=== PATIENT | male | born 1980 | race Two or more races ===

== ENCOUNTER 2018-10-30 14:12 | Emergency (ER) | payer OTHER ==
[2018-10-30] MEDS ORDERED: KETOROLAC TROMETHAMINE 60 MG/2 ML SDV IM ONE (14:51)
--- NOTE | 2018-10-30 16:05 | RADIOLOGY REPORT (SQ) ---
EXAM DESCRIPTION: HUMERUS RIGHT COMPLETED DATE/TIME: 10/30/2018 3:48 pm REASON FOR STUDY: pain from elbow to biceps area COMPARISON: None. NUMBER OF VIEWS: Two views. TECHNIQUE: Two radiographic images were acquired of the right humerus to include elbow and shoulder in at least one projection. LIMITATIONS: None. FINDINGS: MINERALIZATION: Normal. BONES: No acute fracture or dislocation. No worrisome bone lesions. SOFT TISSUES: No obvious swelling or foreign body. OTHER: No other significant finding. IMPRESSION: No fracture or dislocation of the right humerus. TECHNICAL DOCUMENTATION: JOB ID: [id number] [employer]- All Rights Reserved Reading location - IP/workstation name: [email or web address]
--- NOTE | 2018-10-30 16:05 | RADIOLOGY REPORT (SQ) ---
EXAM DESCRIPTION: ELBOW RIGHT OVER 2 VIEWS COMPLETED DATE/TIME: 10/30/2018 3:48 pm REASON FOR STUDY: felt pop in antecubital space, now pain COMPARISON: None. NUMBER OF VIEWS: Four views. TECHNIQUE: AP, lateral, and both oblique radiographic images acquired of the right elbow. LIMITATIONS: None. FINDINGS: MINERALIZATION: Normal. BONES: No acute fracture or dislocation. No worrisome bone lesions. JOINT: No effusion. SOFT TISSUES: No soft tissue swelling. No foreign body. OTHER: No other significant finding. IMPRESSION: No fracture or dislocation of the right elbow. Joint spaces are preserved. No elbow sonia int effusion. MRI may be used to further evaluate for ligamentous or tendinous injury of the right e lbow, for example biceps tendon rupture. TECHNICAL DOCUMENTATION: JOB ID: [id number] [employer]- All Rights Reserved Reading location - IP/workstation name: [email or web address]
--- NOTE | 2018-10-30 16:19 | ER Document Report ---
HPI - HPI Time Seen by Provider: 10/30/18 14:44 Pain Level: 4 Notes: Patient is an otherwise healthy 38-year-old male who presents with chief complaint of right arm pain. He states that on 10/22/18 while he was at work he felt a pop near the antecubital space of his right arm. He now continues to have pain shooting from his forearm up into his bicep. He has occasional numbness in the fingertips. Patient reports today he tried to flip a burger and had severe pain. Patient reports over the last 10 days he has tried taking ibuprofen and has also tried ice in the area with no relief. Patient denies any past medical or surgical history, denies the use of any daily medications and has no drug allergies. - EENT EENT: DENIES: Sore Throat - CARDIOVASCULAR Cardiovascular: DENIES: Chest pain - GASTROINTESTINAL Gastrointestinal: DENIES: Abdominal Pain - REPRODUCTIVE Reproductive: DENIES: : - MUSCULOSKELETAL Musculoskeletal: REPORTS: Extremity pain - right arm Past Medical History - General Information source: Patient - Social History Smoking Status: Current Every Day Smoker Chew tobacco use (# tins/day): No Frequency of alcohol use: None Drug Abuse: None Family History: Reviewed & Not Pertinent Patient has suicidal ideation: No Patient has homicidal ideation: No - Medical History Medical History: Negative Renal/ Medical History: Denies: Hx Peritoneal Dialysis Surgical Hx: Negative - Immunizations Immunizations up to date: Yes Vertical Provider Document - CONSTITUTIONAL Notes: PHYSICAL EXAMINATION: GENERAL: Well-appearing, well-nourished and in no acute distress. HEAD: Atraumatic, normocephalic. EYES: Pupils equal round extraocular movements intact, conjunctiva are normal. ENT: Nares patent NECK: Normal range of motion LUNGS: No respiratory distress Musculoskeletal: Normal range of motion, no obvious deformity noted to right upper extremity, cap refill less than 3 seconds, normal motor sensation distal to injury. NEUROLOGICAL: Normal speech, normal gait. PSYCH: Normal mood, normal affect. SKIN: Warm, Dry, normal turgor, no rashes or lesions noted. - INFECTION CONTROL TRAVEL OUTSIDE OF THE [place] IN LAST 30 DAYS: No Course - Re-evaluation Re-evalutation: 10/30/18 16:18 X-rays are negative for any fracture or dislocation. Cannot exclude ligamentous or tendon injury. Cap refill is less than 3 seconds distal to injury, normal pulses motor and sensation. Patient declined sling as he states it hurts worse when he bends his arm. Patient reports the Toradol did not help his pain so he will take [id number] acetaminophen and Tylenol. Patient discharged home in stable condition. - Vital Signs Vital signs: Temp Pulse Resp BP Pulse Ox 98.4 F 81 16 116/62 97 10/30/18 14:19 10/30/18 14:19 10/30/18 14:19 10/30/18 14:19 10/30/18 14:19 Discharge - Discharge Clinical Impression: Arm injury Qualifiers: Encounter type: initial encounter Laterality: right Qualified Code(s): S49.91XA - Unspecified injury of right shoulder and upper arm, initial encounter Condition: Stable Disposition: HOME, SELF-CARE Additional Instructions: The x-ray taken today did not show any fracture or dislocation. Based upon your examination as well as the history of injury it is suspected that you may have a partial ligament or tendon injury. I have enclosed a copy of the x-ray reports written by the radiologist for you. Please continue to take either Tylenol or Motrin for the pain. Follow-up with the Workmen's Comp. provider ALBERTA. Forms: Return to Work
[2018-10-30 16:26] VITALS: BP 104/60
== END 2018-10-30 16:27 | disposition home or self-care (01) ==
LOC: ER 14:12
DX: S49.91XA Unspecified injury of right shoulder and upper arm, initial encounter (principal); M79.601 Pain in right arm; F17.200 Nicotine dependence, unspecified, uncomplicated; X58.XXXA Exposure to other specified factors, initial encounter; Y99.0 Civilian activity done for income or pay
CPT/HCPCS: 99283; 96372; 73080; 73060; J1885

== ENCOUNTER 2020-08-28 11:38 | Emergency (ER) | payer OTHER ==
--- NOTE | 2020-08-28 11:53 | ER Document Report ---
HPI - HPI Patient complains to provider of: Laceration Time Seen by Provider: 08/28/20 11:45 Onset: Just prior to arrival Onset/Duration: Sudden Quality of pain: Achy Pain Level: 1 Context: Patient was cutting meat at work and accidentally sliced cutting his left thumb. Patient is right-hand dominant. Tetanus immunizations currently up-to-date. Associated Symptoms: Other - Left thumb laceration Exacerbated by: Movement Relieved by: Denies Similar symptoms previously: No Recently seen / treated by doctor: No - ROS ROS below otherwise negative: Yes Systems Reviewed and Negative: Yes All other systems reviewed and negative - CONSTITUTIONAL Constitutional: DENIES: Fever - NEURO Neurology: DENIES: Weakness - GASTROINTESTINAL Gastrointestinal: DENIES: Nausea - MUSCULOSKELETAL Musculoskeletal: REPORTS: Extremity pain - DERM Skin Color: Normal Skin Problems: Laceration Past Medical History - General Information source: Patient - Social History Smoking Status: Current Every Day Smoker Frequency of alcohol use: None Drug Abuse: None Occupation: Foodservice Family History: Reviewed & Not Pertinent - Medical History Medical History: Negative Renal/ Medical History: Denies: Hx Peritoneal Dialysis Surgical Hx: Negative - Immunizations Immunizations up to date: Yes Vertical Provider Document - CONSTITUTIONAL Agree With Documented VS: Yes Exam Limitations: No Limitations General Appearance: WD/WN, No Apparent Distress - INFECTION CONTROL TRAVEL OUTSIDE OF THE [place] IN LAST 30 DAYS: No - HEENT HEENT: Atraumatic, Normocephalic - NECK Neck: Normal Inspection - RESPIRATORY Respiratory: Breath Sounds Normal, No Respiratory Distress - CARDIOVASCULAR Cardiovascular: Regular Rate, Regular Rhythm Pulses: Normal: Radial - MUSCULOSKELETAL/EXTREMETIES Musculoskeletal/Extremeties: MAEW, FROM - NEURO Level of Consciousness: Awake, Alert, Appropriate Motor/Sensory: No Motor Deficit - DERM Integumentary: Warm, Dry, Laceration - 1 cm superficial laceration to the ulnar aspect of the left thumb, no active bleeding, wound edges approximated Course - Re-evaluation Re-evalutation: 08/28/20 Patient with superficial laceration to the left thumb, decision was made to use Dermabond and Steri-Strips for wound closure. Good return precautions discussed with patient. Patient encouraged to follow-up with primary doctor for any persistent problems. Procedures - Laceration/Wound Repair Left Thumb Wound length (cm): 1 Wound's Depth, Shape: Superficial, Linear Wound explored: Clean Wound Repaired With: Steri-strips, Dermabond Post-procedure NV exam normal: Yes Complications: No Hands back picture: 1 - lac Discharge - Discharge Clinical Impression: Laceration of thumb Qualifiers: Encounter type: initial encounter Damage to nail status: without damage Foreign body presence: without foreign body Laterality: left Qualified Code(s): S61.012A - Laceration without foreign body of left thumb without damage to nail, initial encounter Condition: Stable Disposition: HOME, SELF-CARE Instructions: Non-Sutured Laceration ([facility]), Skin Adhesive Closure ([facility]), Care of Steri-Strip Closure ([facility]) Additional Instructions: return immediately for any new or worsening symptoms Followup with your primary care provider, call tomorrow to make a followup appointment Forms: Return to Work Referrals: [facility] [Provider Group] - Follow up as needed
[2020-08-28 11:56] VITALS: BP 128/73
== END 2020-08-28 12:07 | disposition home or self-care (01) ==
LOC: ER 11:38
DX: S61.012A Laceration without foreign body of left thumb without damage to nail, initial encounter (principal); W45.8XXA Other foreign body or object entering through skin, initial encounter; Y93.89 Activity, other specified; Y99.0 Civilian activity done for income or pay; F17.200 Nicotine dependence, unspecified, uncomplicated
CPT/HCPCS: 99282